=== PATIENT | female | born 1970 | race Caucasian/White ===

== ENCOUNTER 2018-06-20 15:46 | Emergency (ER) | payer BC ==
[2018-06-20] MEDS ORDERED: NORMAL SALINE 1000 ML 1,000 ML IV ONE ×2 (16:08→16:56)
--- NOTE | 2018-06-20 16:29 | ER Document Report ---
ED Cardiac - General Chief Complaint: Chest Pain Stated Complaint: CHEST PAIN Time Seen by Provider: 06/20/18 15:51 Information source: Patient Notes: Patient is a 47-year-old female with past medical history of diabetes who presents today with what she states has been some intermittent chest discomfort and palpitations for the last 2 months with some shortness of breath. She states no aggravating or relieving factors. She states she has had this many times in the past and went to see a local heart doctor in [place] and was supposed to follow-up with a specialist for possible heart monitor but never has. Patient states the last 2 days she has had another recurrence of his left- sided nonradiating chest discomfort with some shortness of breath. She describes it as "sharp". She denies any real aggravating or relieving factors. She states nausea without vomiting. She denies any runny nose, congestion, cough, calf pain or leg swelling. She did recently drive from [place] around 2-3 weeks ago. She does not smoke, denies any drug abuse, and states that she only takes her insulin intermittently. - HPI Patient complains to provider of: Chest pain, Palpitations, Shortness of breath Was the onset of pain: Gradual Is the pain a: Chronic problem Chest pain location: Other - See above Quality of pain: Other - See above Chest pain radiation location: None Severity now: Mild Severity at worst: Moderate Pain level currently: 1 Positive cardiac history: No Associated symptoms: Other - See above Exacerbated by: Denies Relieved by: Nothing Similar symptoms previously: Yes Recently seen / treated by doctor: Yes - Related Data Allergies/Adverse Reactions: No Known Allergies Allergy (Verified 06/20/18 16:27) Past Medical History - Social History Smoking Status: Never Smoker Family History: Reviewed & Not Pertinent Patient has suicidal ideation: No Patient has homicidal ideation: No - Past Medical History Cardiac Medical History: Reports: Hx Hypercholesterolemia Endocrine Medical History: Reports: Hx Diabetes Mellitus Type 2 Renal/ Medical History: Denies: Hx Peritoneal Dialysis Past Surgical History: Reports: Hx Cholecystectomy, Hx Gynecologic Surgery Review of Systems - Review of Systems Constitutional: denies: Fever EENT: Nose congestion, Nose discharge. denies: Eye discharge Cardiovascular: denies: Syncope, Dizziness, Lightheaded Respiratory: Short of breath. denies: Hemoptysis, Wheezing Gastrointestinal: denies: Vomiting Genitourinary: denies: Dysuria Musculoskeletal: denies: Leg swelling Skin: Other - no hives. denies: Rash Neurological/Psychological: Other - no slurred speech -: Yes All other systems reviewed and negative Physical Exam - Vital signs Notes: Reviewed vital signs and nursing note as charted by RN. CONSTITUTIONAL: Alert and oriented and responds appropriately to questions. Well -appearing; well-nourished HEAD: Normocephalic; atraumatic EYES: PERRL; Conjunctivae clear, sclerae non-icteric ENT: Normal nose; no rhinorrhea; moist mucous membranes; pharynx without lesions noted NECK: Supple without meningismus; non-tender; no cervical lymphadenopathy, no masses CARD: Slightly tachycardic but regular; no murmurs; symmetric distal pulses RESP: Normal chest excursion without splinting or tachypnea; breath sounds clear and equal bilaterally; no wheezes, no rhonchi, no rales ABD/GI: Normal bowel sounds; non-distended; soft, non-tender; no palpable organomegaly or masses BACK: The back appears normal and is non-tender to palpation EXT: Normal ROM in all joints; non-tender to palpation; no edema SKIN: No acute lesions noted NEURO: CN 2-12 intact; 5/5 bilateral upper and lower extremity strength with sensation intact to light touch PSYCH: The patient's mood and manner are appropriate. Grooming and personal hygiene are appropriate. Course - Re-evaluation Re-evalutation: Given the above history and physical examination we will obtain basic labs, d- dimer, VBG, provide fluids and reassess. I do believe dissection to be unlikely. 06/20/18 16:29 EKG shows a heart rate of 101, sinus tachycardia, normal axis, narrow QRS, no ST elevation or depression 06/20/18 16:56 Chest x-ray shows normal heart, normal mediastinum, no fractures, normal lung bean, no pneumothorax. Labs as recorded. Heart rate is currently 95. I have provided another liter of fluid given the patient's blood glucose. PH as recorded. Patient is currently chest pain-free. X-ray of the chest as recorded above. D-dimer and troponin are pending. 06/20/18 17:30 D-dimer and troponin as recorded. Patient states her primary care physician recently checked her thyroid and told her that it was "normal". I do not feel that the patient needs a recheck of her thyroid level at this time given these recent results. 06/20/18 17:46 Patient's heart rate is currently 98. Oxygen levels 100% on room air. Patient has [employer]. She has a primary care physician, Dr. Estelle bob. I have attempted to call her office and she does not have an answering machine or service at this time being Thursday afternoon. Patient is still chest pain-free. I will perform a repeat troponin 3 hours after the initial and if this is unremarkable, I would discharge the patient home with strict return precautions and follow-up with the primary care physician as well as the outpatient skiagrapher. I have instructed the patient the importance of strict return precautions as well as to avoid all caffeinated beverages and dark chocolate. - Laboratory Result Diagrams: 06/20/18 16:10 06/20/18 16:10 Laboratory results interpreted by me: 06/20/18 16:10 Glucose 385 H Discharge - Discharge Clinical Impression: Palpitations Chest pain Qualifiers: Chest pain type: unspecified Qualified Code(s): R07.9 - Chest pain, unspecified Disposition: HOME, SELF-CARE Additional Instructions: Come back immediately for any worsening pain, shortness of breath, fevers, leg swelling, or any other acute problems. Please make sure that she follow-up with your primary care physician and the skiagrapher that we have discussed. Please make sure that you stay away from any caffeinated beverages or dark chocolate until reevaluation. Referrals: DINESH,SAIDA [NO LOCAL MD] - Follow up as needed JULIAN WESLEY MD [ACTIVE STAFF] - Follow up as needed
[2018-06-20 16:39] LABS: ABSOLUTE EOSINOPHILS # (AUTO) 0.1 10^3/uL (0.0-0.6); ABSOLUTE LYMPHOCYTES (AUTO) 2.1 10^3/uL (0.5-4.7); ABSOLUTE MONOCYTES (AUTO) 0.5 10^3/uL (0.1-1.4); ABSOLUTE NEUT (AUTO) 5.1 10^3/uL (1.7-8.2); BASOPHILS % (AUTO) 0.3 % (0-2); EOSINOPHILS % (AUTO) 0.9 % (0-6); HEMATOCRIT 42.1 % (36.0-47.0); HEMOGLOBIN 14.5 g/dL (12.0-15.5); LYMPHOCYTES % (AUTO) 26.6 % (13-45); MEAN CORPUSCULAR HEMOGLOBIN 30.2 pg (27.0-33.4); MEAN CORPUSCULAR HGB CONC 34.5 g/dL (32.0-36.0); MEAN CORPUSCULAR VOLUME 88 fl (80-97); MONOCYTES % (AUTO) 6.5 % (3-13); PLATELET COUNT 321 10^3/uL (150-450); RED BLOOD COUNT 4.81 10^6/uL (3.72-5.28); RED CELL DISTRIBUTION WIDTH 12.1 % (11.5-14.0); SEGMENTED NEUTROPHILS % (AUTO) 65.7 % (42-78); TOTAL CELLS COUNTED % (AUTO) 100 %; WHITE BLOOD COUNT 7.7 10^3/uL (4.0-10.5)
[2018-06-20 16:43] LABS: VENOUS BLOOD BASE EXCESS 0.4 mmol/L; VENOUS BLOOD HCO3 24.8 mmol/L (20-32); VENOUS BLOOD PCO2 39.2 mmHg (35-63); VENOUS BLOOD PH 7.42 (7.30-7.42)
[2018-06-20 16:49] LABS: ANION GAP 16 (5-19); BLOOD UREA NITROGEN 15 mg/dL (7-20); CALCIUM 9.5 mg/dL (8.4-10.2); CARBON DIOXIDE 23 mmol/L (22-30); CHLORIDE 100 mmol/L (98-107); GLUCOSE 385 mg/dL (75-110); POTASSIUM 4.6 mmol/L (3.6-5.0); SODIUM 138.6 mmol/L (137-145)
--- NOTE | 2018-06-20 16:53 | RADIOLOGY REPORT (SQ) ---
EXAM DESCRIPTION: CHEST 2 VIEWS COMPLETED DATE/TIME: 06/20/2018 4:30 pm REASON FOR STUDY: 5, CP COMPARISON: None. EXAM PARAMETERS: NUMBER OF VIEWS: two views TECHNIQUE: Digital Frontal and Lateral radiographic views of the chest acquired. RADIATION DOSE: NA LIMITATIONS: none FINDINGS: LUNGS AND PLEURA: No opacities, masses or pneumothorax. No pleural effusion. MEDIASTINUM AND HILAR STRUCTURES: No masses or contour abnormalities. HEART AND VASCULAR STRUCTURES: Heart normal size. No evidence for failure. BONES: No acute findings. HARDWARE: None in the chest. OTHER: No other significant finding. IMPRESSION: NO ACUTE RADIOGRAPHIC FINDING IN THE CHEST. TECHNICAL DOCUMENTATION: JOB ID: [id number] [employer]- All Rights Reserved Reading location - IP/workstation name: [email or web address]
[2018-06-20 20:19] VITALS: BP 125/79
--- NOTE | 2018-06-20 22:45 | EKG REPORT ---
SEVERITY:- OTHERWISE NORMAL ECG - SINUS TACHYCARDIA : Confirmed by: Anju Parson MD 20-Jun-2018 22:44:58
== END 2018-06-20 20:25 | disposition home or self-care (01) ==
LOC: ER 15:46
DX: E11.65 Type 2 diabetes mellitus with hyperglycemia (principal); R07.9 Chest pain, unspecified; R00.2 Palpitations; Z91.14 Patient's other noncompliance with medication regimen; R06.02 Shortness of breath
CPT/HCPCS: 93005; 99285; 96360; 96361; 36415; 85025; 80048; 84484; 85379; 82803; 71046; 93010; J7030

== ENCOUNTER 2019-02-19 21:01 | Emergency (ER) | payer SELFPAY ==
[2019-02-19 21:06] VITALS: BP 138/77
[2019-02-19] MEDS ORDERED: MORPHINE SULFATE 10 MG/ML INJ IM ONE (22:44)
[2019-02-19] MEDS ORDERED: LIDOCAINE 1% INJ-PF (10 MG/ML) 30 ML SDV INJ ONE (22:44)
[2019-02-19] MEDS ORDERED: DIAZEPAM 5 MG TABLET PO ONE (22:44)
--- NOTE | 2019-02-19 23:00 | ER Document Report ---
ED General - General Chief Complaint: Abscess Stated Complaint: SORES ON NECK Time Seen by Provider: 02/19/19 22:09 Mode of Arrival: Ambulatory Information source: Patient, [facility] Records Notes: 48-year-old female with diabetes presents with complaint of an abscess on the back of her neck that developed 3 days prior to arrival. Patient has had prior similar symptoms and states she thinks it is due to wearing a hair in it at work in the heat. She denies any history of MRSA, fever, chills, nausea, vomiting. TRAVEL OUTSIDE OF THE [place] IN LAST 30 DAYS: No - HPI Onset: Other Onset/Duration: Gradual, Persistent Quality of pain: Throbbing Severity: Moderate Pain Level: 2 Associated symptoms: denies: Chills, Fever, Nausea, Vomiting, Shortness of breath Exacerbated by: Movement Relieved by: Denies Similar symptoms previously: Yes Recently seen / treated by doctor: No - Related Data Allergies/Adverse Reactions: No Known Allergies Allergy (Verified 06/20/18 16:27) Past Medical History - General Information source: Patient - Social History Smoking Status: Never Smoker Frequency of alcohol use: None Drug Abuse: None Lives with: Spouse/Significant other Family History: Reviewed & Not Pertinent Patient has suicidal ideation: No Patient has homicidal ideation: No - Past Medical History Cardiac Medical History: Reports: Hx Hypercholesterolemia Endocrine Medical History: Reports: Hx Diabetes Mellitus Type 2 Renal/ Medical History: Denies: Hx Peritoneal Dialysis Past Surgical History: Reports: Hx Cholecystectomy, Hx Gynecologic Surgery Review of Systems - Review of Systems Notes: REVIEW OF SYSTEMS: CONSTITUTIONAL : Denies fever, chills, or sweats. Denies recent illness. Denies weight loss, recent hospitalizations. EENT: Denies visual changes, eye pain. Denies sore throat, oral lesions, difficulty swallowing. CARDIOVASCULAR: Denies chest pain. Denies palpitations. Denies lower extremity edema. RESPIRATORY: Denies cough. Denies shortness of breath, wheezing. GASTROINTESTINAL: Denies abdominal pain or distention. Denies nausea, vomiting, or diarrhea. Denies blood in vomitus, stools, or per rectum. Denies black, tarry stools. Denies constipation. GENITOURINARY: Denies difficulty urinating, painful urination, frequency, blood in urine, or vaginal discharge. MUSCULOSKELETAL: Denies back or neck pain or stiffness. Denies joint pain or swelling. SKIN: + Abscess neck HEMATOLOGIC : Denies easy bruising or bleeding. LYMPHATIC: Denies swollen glands. NEUROLOGICAL: Denies confusion or altered mental status. Denies loss of consciousness. Denies dizziness or lightheadedness. Denies headache. Denies weakness or paralysis. Denies problems difficulty with ambulation, slurred speech. Denies sensory loss, numbness, or tingling. Denies seizures. PSYCHIATRIC: Denies anxiety or stress. Denies depression, suicidal ideation, or homicidal ideation. Denies visual or auditory hallucinations. Physical Exam - Vital signs Vitals: Temp Pulse Resp BP Pulse Ox 98.3 F 111 H 18 138/77 H 97 02/19/19 21:06 02/19/19 21:06 02/19/19 21:02/19/19 21:02/19/19 21:06 - Notes Notes: PHYSICAL EXAMINATION: GENERAL: Well-appearing, well-nourished and in no acute distress. HEAD: Atraumatic, normocephalic. EYES: Pupils equal round and reactive to light, extraocular movements intact, conjunctiva are normal. ENT: Nares patent, oropharynx clear without exudates. Moist mucous membranes. NECK: Normal range of motion, supple without lymphadenopathy LUNGS: Breath sounds clear to auscultation bilaterally and equal. No wheezes rales or rhonchi. HEART: Regular rate and rhythm without murmurs ABDOMEN: Soft, nontender, nondistended abdomen. No guarding, no rebound. No masses appreciated. Female : deferred Musculoskeletal: Normal range of motion, no pitting or edema. No cyanosis. NEUROLOGICAL: Cranial nerves grossly intact. Normal speech, normal gait. Normal sensory, motor exams PSYCH: Normal mood, normal affect. SKIN: 4 x 4 area of induration, tenderness and erythema on the posterior neck. No fluctuance. Course - Re-evaluation Re-evalutation: Temp Pulse Resp BP Pulse Ox 98.3 F 111 H 18 138/77 H 97 02/19/19 21:06 02/19/19 21:06 02/19/19 21:06 02/19/19 21:06 02/19/19 21:06 02/19/19 22:59 48-year-old white female presents with an abscess to the back of her neck. 02/19/19 23:48 Bedside ultrasound was performed and showed a 3 x 4 loculated abscess. I&D was performed and a scant amount of purulent drainage was expressed. Deloculation performed. Patient was administered her first dose of Keflex, Bactrim. She was advised to apply warm compresses. Dressing applied. 02/20/19 05:31 Patient was evaluated and treated as appropriate for the patient's presenting symptoms and complaint, with consideration of any critical or life threatening conditions that may be associated with their obtained history and exam as noted above. All results were discussed with patient . Patient provided the opportunity to ask questions, and express concerns. Patient was educated on treatments based on their presumed diagnosis as noted above. At this time we will discharge the patient with return precautions and follow-up recommendations. Verbal discharge instructions given a the bedside. Medication warnings reviewed. Patient is in agreement with this plan and has verbalized understanding of return precautions. After careful consideration I feel that that patient can be safely discharged from the emergency department, they were advised to followup with a primary care physician in 2-3 days. Dictation on this chart was performed using voice recognition software and may result in unintended grammatical, spelling, syntax or errors. - Vital Signs Vital signs: Temp Pulse Resp BP Pulse Ox 98.3 F 111 H 18 138/77 H 97 02/19/19 21:06 02/19/19 21:06 02/19/19 21:06 02/19/19 21:06 02/19/19 21:06 Procedures - Incision and Drainage Neck Time completed: 05:31 Type: Simple Anesthetic type: 1% Lidocaine mL's of anesthetic: 10 Blade size: 11 I&D procedure: Betadine prep applied, Shurclens applied, Sterile dressing applied Incision Method: Incision made by scalpel Amount/type of drainage: Scant purulent drainage Discharge - Discharge Clinical Impression: Abscess, neck Condition: Good Disposition: HOME, SELF-CARE Instructions: Abscess ([facility]), Cephalexin ([facility]), Post Incision and Drainage, Trimethoprim-Sulfa ([facility]) Additional Instructions: You were seen for an abscess that required drainage. Please clean this area with soap and water twice daily and apply a topical antibiotic. Dress the area after each cleaning. Please return if you develop fever, vomiting, the pain at the site worsens, you notice spreading redness from the area, or you have any other symptoms that are concerning to you. Prescriptions: Cephalexin Monohydrate [Keflex 500 mg Capsule] 500 mg PO BID 7 Days #14 capsule Sulfamethoxazole/Trimethoprim [Bactrim Ds Tablet] 1 each PO BID 7 Days #14 tablet Forms: Elevated Blood Pressure
[2019-02-19] MEDS ORDERED: SULFAMETHOXAZOLE/TRIMETHOPRIM 800-160 MG TABLET PO ONE (23:48)
[2019-02-19] MEDS ORDERED: CEPHALEXIN 500 MG CAPSULE PO ONE (23:48)
[2019-02-20] MEDS ORDERED: BACITRACIN ZINC OINTMENT 15 GM TP ONE (00:04)
== END 2019-02-20 01:42 | disposition home or self-care (01) ==
LOC: ER 21:01
DX: L02.11 Cutaneous abscess of neck (principal); E11.9 Type 2 diabetes mellitus without complications
CPT/HCPCS: 99283; 96372; 10060; A6266; J3490 ×2; J2270